=== PATIENT | female | born 1965 | race Caucasian/White ===

== ENCOUNTER 2018-03-28 10:47 | Emergency (ER) | payer OTHER ==
--- NOTE | 2018-03-28 12:06 | EDPHY ---
H & P Stated Complaint: Injury to left knee while hiking this am. Time Seen by Provider: 03/28/18 11:07 HPI/ROS: CHIEF COMPLAINT: Right thumb injury and left knee injury HISTORY OF PRESENT ILLNESS: 52-year-old female visiting from [facility], arrives via private vehicle complaining of acute right thumb and left knee pain after she was hiking this morning, slipped on gravel impacted said areas. She was able to hike out did not necessitate pre-hospital EMS. She is able to bear weight on her left lower extremity but notes particular pain with going up or down stairs. No gross instability. The right thumb has reproducible pain with palpation particularly to the thenar eminence. She denies: Head injury, neck pain or injury, midline C-spine pain or injury or other trauma. PHYSICAL EXAM 1) GENERAL: Well-developed, well-nourished, alert and oriented. Appears to be in no acute distress. Answering questions appropriately. 2) HEAD: Normocephalic 3) LUNGS: breathing comfortably. 4) ABDOMEN: No guarding 5) MUSCULOSKELETAL: Left lower extremity: No gross instability, no effusion no swelling no ecchymosis. Full pain-free range of motion. Proximally distally nontender. Soft compartments. Right upper extremity: Ecchymosis, soft tissue swelling, soft compartments to the right thenar eminence. Reproducible pain with range of motion. Abduction abduction extension flexion pincer opposition function intact. Otherwise, Moving all extremities, no focal areas of tenderness, no obvious trauma. DIFFERENTIAL DIAGNOSIS: In no particular order including but not limited to fracture, sprain, strain, dislocation, compartment syndrome - Personal History Current Tetanus Diphtheria and Acellular Pertussis (TDAP): Yes - Medical/Surgical History Hx Asthma: No Hx Chronic Respiratory Disease: No Hx Diabetes: No Hx Cardiac Disease: No Hx Renal Disease: No Hx Cirrhosis: No Hx Alcoholism: No Hx HIV/AIDS: No Hx Splenectomy or Spleen Trauma: No Other PMH: Denies - Social History Smoking Status: Never smoked Constitutional: Initial Vital Signs Temperature (C) 36.6 C 03/28/18 10:56 Heart Rate 87 03/28/18 10:56 Respiratory Rate 16 03/28/18 10:56 Blood Pressure 105/69 03/28/18 10:56 O2 Sat (%) 96 03/28/18 10:56 O2 Delivery Mode Room Air Allergies/Adverse Reactions: Sulfa (Sulfonamide Antibiotics) Allergy (Verified 03/28/18 10:58) Home Medications: Medication Instructions Recorded NK [No Known Home Meds] 03/28/18 Medical Decision Making - Diagnostics Imaging Results: Imaging Impressions Knee X-Ray 03/28/18 11:02 Impression: Normal left knee series. Hand X-Ray 03/28/18 11:05 Impression: Negative. No acute fracture. Images reviewed myself Procedures: Procedure: Splint A Velcro thumb spica splint was applied by ER optical laboratory technician. After application of the splint I returned and re-examined the patient. The splint was adequately immobilizing the joint and distal to the splint the patient's circulation and sensation were intact. Patient shows no signs of compartment syndrome. Was given orthopedic precautions. ED Course/Re-evaluation: Spoke with the patient and discussed limitations of x-ray for both her hand and her knee. She has been informed that soft tissue injury such as ligamentous injury is not ruled out. At this time I do not think that emergent MRI is indicated. Specifically for her knee she notes no instability in was able to hike out afterward. I offered knee brace and crutches however I think that these with but the patient greater risk of falling and she is in agreement. Emmanuel wrap has therefore been placed. Regarding her right hand she has been informed that ligamentous injury such as ulnar collateral ligament injury not ruled out and therefore a Velcro thumb spica as in place. She is returning to [place] in 2 days. She has been given copies of her x-rays. Recommend she seen orthopedic and hand surgeon when she returns. She is agreeable with this. Usual and customary orthopedic precautions instructions provided. I saw this patient independently based on established practice protocols. Care of patient under supervision of secondary supervising physician Dr Roni Bonilla Departure - Departure Disposition: Home, Routine, Self-Care Clinical Impression: Sprain of right thumb Qualifiers: Encounter type: initial encounter Sprain of finger site: unspecified site Qualified Code(s): S63.601A - Unspecified sprain of right thumb, initial encounter Left knee sprain Qualifiers: Encounter type: initial encounter Involved ligament of knee: unspecified ligament Qualified Code(s): S83.92XA - Sprain of unspecified site of left knee, initial encounter Condition: Good Instructions: Knee Sprain (ED), Skier's Thumb (ED) Additional Instructions: Return to the ER immediately if you experience discoloration, have worsening pain, numbness, tingling, or any other symptoms that concern you. If you received x-rays in the emergency department today, be advised, that ligamentous , tendon, muscular, and other non-bony injury cannot be fully ruled out. Try to keep your affected extremity elevated above the level of your chest, and keep cold packs on the affected area, for the next 48 hours. Referrals: Ricky Jorge MD [Medical Doctor] - As per Instructions I recommend, you see orthopedic and hand surgeon [Other] - As per Instructions
[2018-03-28 13:16] VITALS: BP 135/87
== END 2018-03-28 13:16 | disposition home or self-care (01) ==
DX: S63.601A Unspecified sprain of right thumb, initial encounter (principal); S83.92XA Sprain of unspecified site of left knee, initial encounter; W19.XXXA Unspecified fall, initial encounter; Y93.01 Activity, walking, marching and hiking; Y92.828 Other wilderness area as the place of occurrence of the external cause; Y99.9 Unspecified external cause status
CPT/HCPCS: L3807